=== PATIENT | male | born 1945 | race Caucasian/White ===

== ENCOUNTER 2021-06-11 16:01 | Inpatient (IN) | payer MEDICARE ==
[~2021-06-11] VITALS: Ht 175.3 cm; Wt 113.4 kg
[~2021-06-11 16:01] MED LIST: ADVAIR 250-501 EACH INH; AMLODIPINE BESYL5 MG PO; GEMFIBROZIL600 MG PO; LEVOCETIRIZINE D5 MG PO; MELOXICAM7.5 MG PO; SINGULAIR10 MG PO; ZETIA10 MG PO
[2021-06-11 17:34] LABS: BASOPHILS % 0.4 % (0.0-1.0); EOSINOPHILS # (AUTO) 0.3 (0.0-0.4); EOSINOPHILS % 3.9 % (0.0-6.0); HEMATOCRIT 43.8 % (38.2-49.6); LYMPHOCYTES # (AUTO) 1.3 (1.0-3.2); LYMPHOCYTES % 17.4 % (18.0-39.1); MEAN CORPUSCULAR HEMOGLOBIN 31.6 pg (28-32); MEAN CORPUSCULAR HGB CONC 29.7 g/dL (31-35); MEAN CORPUSCULAR VOLUME 106.3 fL (81-99); MONOCYTES # (AUTO) 0.7 (0.2-0.8); MONOCYTES % 9.5 % (4.4-11.3); NEUTROPHILS # (AUTO) 5.1 (2.1-6.9); NEUTROPHILS % 68.5 % (38.7-80.0); PLATELET COUNT 184 x10e3/uL (140-360); RED BLOOD COUNT 4.12 x10e6/uL (4.3-5.7); RED CELL DISTRIBUTION WIDTH 13.9 % (11.7-14.4)
[2021-06-11 17:56] LABS: ALBUMIN 4.1 g/dL (3.5-5.0); ALBUMIN/GLOBULIN RATIO 1.6 (0.8-2.0); ANION GAP 11.8 mmol/L (8-16); CALCIUM 9.4 mg/dL (8.4-10.2); CREATININE, SERUM 0.87 mg/dL (0.72-1.25); POTASSIUM 4.8 mmol/L (3.5-5.1)
[2021-06-11 18:03] LABS: CREATINE KINASE MB 3.4 ng/mL (0-5.0)
[2021-06-11] MEDS ORDERED: ALBUTEROL/IPRATROPIUM 3 ML NEB NEB STA (18:29)
[2021-06-11] MEDS ORDERED: FUROSEMIDE INJ 10 MG/ML 4 ML VIAL IV NR (18:45)
[2021-06-11 20:00] VITALS: BP_SYST 142; BP_SYST 148; BP_DIAS 68; BP_DIAS 85
[2021-06-11 20:05] VITALS: BP 142/68
[2021-06-11] MEDS ORDERED: MELOXICAM 7.5 MG TAB PO STA (22:09)
[2021-06-11] MEDS ORDERED: SALMETEROL/FLUTICASONE 250/50 INH STA (22:09)
[2021-06-11 23:16] VITALS: BP 142/68
[2021-06-12] VITALS (8 sets, daily range): BP systolic 121–152; BP diastolic 58–76
[2021-06-12 03:06] LABS: CREATINE KINASE MB 2.7 ng/mL (0-5.0)
[2021-06-12 05:41] LABS: BASOPHILS % 0.4 % (0.0-1.0); EOSINOPHILS # (AUTO) 0.4 (0.0-0.4); EOSINOPHILS % 5.3 % (0.0-6.0); HEMATOCRIT 42.9 % (38.2-49.6); HEMOGLOBIN 12.8 g/dL (14.0-18.0); LYMPHOCYTES # (AUTO) 1.4 (1.0-3.2); LYMPHOCYTES % 19.2 % (18.0-39.1); MEAN CORPUSCULAR HEMOGLOBIN 30.8 pg (28-32); MEAN CORPUSCULAR HGB CONC 29.8 g/dL (31-35); MEAN CORPUSCULAR VOLUME 103.4 fL (81-99); MONOCYTES # (AUTO) 0.6 (0.2-0.8); MONOCYTES % 8.9 % (4.4-11.3); NEUTROPHILS # (AUTO) 4.7 (2.1-6.9); NEUTROPHILS % 65.8 % (38.7-80.0); PLATELET COUNT 176 x10e3/uL (140-360); RED BLOOD COUNT 4.15 x10e6/uL (4.3-5.7); RED CELL DISTRIBUTION WIDTH 13.7 % (11.7-14.4)
[2021-06-12 06:04] LABS: CREATINE KINASE MB 2.6 ng/mL (0-5.0)
[2021-06-12 06:17] LABS: ALBUMIN 3.5 g/dL (3.5-5.0); ALBUMIN/GLOBULIN RATIO 1.3 (0.8-2.0); ANION GAP 12.3 mmol/L (8-16); CALCIUM 8.9 mg/dL (8.4-10.2); CREATININE, SERUM 0.82 mg/dL (0.72-1.25); POTASSIUM 4.3 mmol/L (3.5-5.1)
[2021-06-12] MEDS ORDERED: FUROSEMIDE INJ 10 MG/ML 4 ML VIAL IV ONE ×2 (08:00→15:45)
[2021-06-12] MEDS: EZETIMIBE 10 MG TAB PO SCH (08:20)
[2021-06-12] MEDS: AMLODIPINE BESYLATE 5 MG TAB PO SCH (08:21)
[2021-06-12] MEDS: OLMESARTAN 20 MG TAB PO SCH (08:24)
[2021-06-12] MEDS: GEMFIBROZIL 600 MG TAB PO SCH (09:00)
[2021-06-12] MEDS ORDERED: METHYLPREDNISOLONE SOD SUCC 125 MG/2ML VIAL IV ONE (09:00)
[2021-06-12] MEDS: ALBUTEROL/IPRATROPIUM 3 ML NEB NEB SCH ×4 (09:00→20:30)
[2021-06-12] MEDS: SALMETEROL/FLUTICASONE 250/50 INH SCH ×2 (09:36→20:30)
[2021-06-12 11:34] LABS: CREATINE KINASE MB 2.4 ng/mL (0-5.0)
[2021-06-12] MEDS: CEFTRIAXONE 1 GM in SODIUM CHLORIDE 0.9% 50ML 50 ML IV SCH (11:54)
[2021-06-12] MEDS ORDERED: SODIUM CHLORIDE 0.9% 250ML 250 ML ONE (12:13)
[2021-06-12] MEDS ORDERED: MONTELUKAST SODIUM 10 MG TAB PO SCH (21:00)
[2021-06-12] MEDS ORDERED: MELOXICAM 7.5 MG TAB PO SCH (21:00)
[2021-06-13] MEDS: ALBUTEROL/IPRATROPIUM 3 ML NEB NEB SCH ×2 (00:05→08:10)
[2021-06-13 04:00] VITALS: BP 110/68
[2021-06-13 05:58] LABS: HEMATOCRIT 44.8 % (38.2-49.6); LYMPHOCYTES # (AUTO) 0.5 (1.0-3.2); LYMPHOCYTES % 7.5 % (18.0-39.1); MEAN CORPUSCULAR VOLUME 106.7 fL (81-99); MONOCYTES # (AUTO) 0.5 (0.2-0.8); MONOCYTES % 7.1 % (4.4-11.3); NEUTROPHILS # (AUTO) 6.2 (2.1-6.9); NEUTROPHILS % 85.1 % (38.7-80.0); PLATELET COUNT 187 x10e3/uL (140-360); RED CELL DISTRIBUTION WIDTH 13.6 % (11.7-14.4)
[2021-06-13] MEDS ORDERED: FUROSEMIDE INJ 10 MG/ML 4 ML VIAL IV SCH ×2 (06:00→07:00)
[2021-06-13 06:31] LABS: ANION GAP 13.2 mmol/L (8-16); CALCIUM 8.9 mg/dL (8.4-10.2); CREATININE, SERUM 0.81 mg/dL (0.72-1.25); POTASSIUM 4.2 mmol/L (3.5-5.1)
[2021-06-13 07:26] VITALS: BP 115/69
[2021-06-13 08:10] LABS: PLATELET ESTIMATE ADEQUATE; PLATELET MORPHOLOGY COMMENT NORMAL; RBC MORPHOLOGY COMMENT NORMAL
[2021-06-13] MEDS: CEFTRIAXONE 1 GM in SODIUM CHLORIDE 0.9% 50ML 50 ML IV SCH (08:20)
[2021-06-13] MEDS: OLMESARTAN 20 MG TAB PO SCH (08:22)
[2021-06-13] MEDS: GEMFIBROZIL 600 MG TAB PO SCH (08:23)
[2021-06-13 08:24] VITALS: BP 115/69
[2021-06-13] MEDS: AMLODIPINE BESYLATE 5 MG TAB PO SCH (09:00)
[2021-06-13] MEDS: SALMETEROL/FLUTICASONE 250/50 INH SCH (09:00)
[2021-06-13] MEDS: EZETIMIBE 10 MG TAB PO SCH (09:00)
[2021-06-13] MEDS ORDERED: DEXAMETHASONE4 MG PO (10:36)
[2021-06-13] MEDS ORDERED: BENICAR20 MG PO (10:36)
[2021-06-13] MEDS ORDERED: AMLODIPINE BESYL5 MG PO (10:36)
[2021-06-13] MEDS ORDERED: ZITHROMAX500 MG PO (10:36)
[2021-06-13] MEDS ORDERED: FUROSEMIDE40 MG PO (10:37)
== END 2021-06-13 10:55 | disposition home or self-care (01) | DRG 291 ==
LOC: ER 16:57 → ERHOLD 17:18 → MED/SURG 19:46
PROVIDERS: ADMIT Internal Medicine; ATTEND Internal Medicine
DX: I11.0 Hypertensive heart disease with heart failure (principal); I50.33 Acute on chronic diastolic (congestive) heart failure; J44.1 Chronic obstructive pulmonary disease with (acute) exacerbation; J44.0 Chronic obstructive pulmonary disease with (acute) lower respiratory infection; R09.02 Hypoxemia; E66.9 Obesity, unspecified; I25.10 Atherosclerotic heart disease of native coronary artery without angina pectoris; F10.20 Alcohol dependence, uncomplicated; Z68.36 Body mass index [BMI] 36.0-36.9, adult; Z20.822 Contact with and (suspected) exposure to COVID-19
CPT/HCPCS: 36415; 71045; 80048; 80053; 82550; 82553; 82948; 83880; 84484; 85025; 93005; 93306; 94640; 94664; 94799; 99285; J0456; J0696; J1940; J2930; J7050; U0002

== ENCOUNTER → 2022-05-07 | Outpatient (CLI) | payer MEDICARE ==
[~2022-05-07] MED LIST changes: +BENICAR20 MG PO; +DEXAMETHASONE4 MG PO; +FUROSEMIDE40 MG PO; +ZITHROMAX500 MG PO
== END ==
LOC: RAD 14:59
PROVIDERS: ATTEND Internal Medicine
DX: R04.2 Hemoptysis (principal)
CPT/HCPCS: 71046

== ENCOUNTER 2023-06-09 14:55 | Inpatient (IN) | payer MEDICARE ==
[~2023-06-09] VITALS: Ht 172.7 cm; Wt 98.9 kg
[2023-06-09 15:59] LABS: BASOPHILS # (AUTO) 0.1 (0.0-0.1); BASOPHILS % 0.7 % (0.0-1.0); EOSINOPHILS # (AUTO) 0.6 (0.0-0.4); HEMOGLOBIN 9.7 g/dL (14.0-18.0); LYMPHOCYTES # (AUTO) 1.1 (1.0-3.2); LYMPHOCYTES % 13.3 % (18.0-39.1); MEAN CORPUSCULAR HEMOGLOBIN 30.4 pg (28-32); MEAN CORPUSCULAR HGB CONC 29.4 g/dL (31-35); MEAN CORPUSCULAR VOLUME 103.4 fL (81-99); MONOCYTES # (AUTO) 0.8 (0.2-0.8); MONOCYTES % 9.9 % (4.4-11.3); NEUTROPHILS # (AUTO) 5.8 (2.1-6.9); NEUTROPHILS % 68.9 % (38.7-80.0); PLATELET COUNT 212 x10e3/uL (140-360); RED BLOOD COUNT 3.19 x10e6/uL (4.3-5.7); RED CELL DISTRIBUTION WIDTH 14.6 % (11.7-14.4); WHITE BLOOD COUNT 8.45 x10e3/uL (4.8-10.8)
[2023-06-09 16:03] LABS: INR 1.52; PARTIAL THROMBOPLASTIN TIME 32.1 seconds (23.8-35.5); PROTHROMBIN TIME 18.6 seconds (11.9-14.5)
[2023-06-09 16:03] LABS: BILIRUBIN,URINE NEGATIVE (NEGATIVE); CLARITY,URINE CLEAR (CLEAR); COLOR,URINE YELLOW (YELLOW); GLUCOSE, URINE NEGATIVE (NEGATIVE); KETONES,URINE NEGATIVE (NEGATIVE); LEUKOCYTE ESTERASE ,URINE NEGATIVE (NEGATIVE); NITRITE,URINE NEGATIVE (NEGATIVE); PH,URINE 5.5 (5 - 7); PROTEIN,URINE DIPSTICK NEGATIVE (NEGATIVE); URINE UROBILINOGEN 0.2 mg/dL (0.2 - 1)
[2023-06-09 16:15] LABS: ALBUMIN 3.9 g/dL (3.5-5.0); ALBUMIN/GLOBULIN RATIO 1.5 (0.8-2.0); ANION GAP 16.3 mmol/L (8-16); BILIRUBIN,TOTAL 0.6 mg/dL (0.2-1.2); CALCIUM 8.7 mg/dL (8.4-10.2); CREATININE, SERUM 2.62 mg/dL (0.72-1.25); MAGNESIUM 2.4 MG/DL (1.3-2.1); POTASSIUM 4.3 mmol/L (3.5-5.1); TOTAL PROTEIN 6.5 g/dL (6.5-8.1)
[2023-06-09 16:21] LABS: TROPONIN I 0.034 ng/mL (0-0.300)
[2023-06-09 16:28] LABS: BACTERIA,URINE RARE /HPF; WBC,URINE (MAN) 0-5 /HPF (0-5)
[2023-06-09] MEDS ORDERED: ALBUTEROL/IPRATROPIUM 3 ML NEB NEB ONE (17:30)
[2023-06-09 17:33] VITALS: PULSE 85; RESP 22; O2SAT 98
[2023-06-09] MEDS ORDERED: FUROSEMIDE INJ 10 MG/ML 4 ML VIAL IV ONE ×2 (18:15→22:45)
[2023-06-09] MEDS ORDERED: FAMOTIDINE 20 MG/2 ML VIAL IV SCH (19:30)
[2023-06-09] MEDS ORDERED: ONDANSETRON HCL INJ 2MG/ML 2ML 2 MG/ML VIAL IV PRN (19:30)
[2023-06-09 21:51] VITALS: BP 102/84; PULSE 81; RESP 20; TEMP 97.1; O2SAT 91
[2023-06-09 22:00] VITALS: BP 102/84; PULSE 81; RESP 20; TEMP 97.1; O2SAT 91
[2023-06-09] MEDS ORDERED: METHYLPREDNISOLONE SOD SUCC 125 MG/2ML VIAL IV ONE (22:45)
[2023-06-09 23:30] VITALS: O2SAT 98
[2023-06-09] MEDS: ALBUTEROL/IPRATROPIUM 3 ML NEB NEB SCH (23:35)
[2023-06-10] VITALS (12 sets, daily range): BP systolic 92–143; BP diastolic 51–82; PULSE 72–103; RESP 18–22; TEMP 97.1–98.3; O2SAT 93–100
[2023-06-10 00:48] LABS: TROPONIN I 0.03 ng/mL (0-0.300)
[2023-06-10] MEDS ORDERED: ELIQUIS5 MG PO (02:15)
[2023-06-10] MEDS: ALBUTEROL/IPRATROPIUM 3 ML NEB NEB SCH ×6 (03:55→23:10)
[2023-06-10 05:34] LABS: BASOPHILS % 0.5 % (0.0-1.0); EOSINOPHILS # (AUTO) 0.1 (0.0-0.4); EOSINOPHILS % 0.7 % (0.0-6.0); HEMATOCRIT 35.9 % (38.2-49.6); HEMOGLOBIN 10.7 g/dL (14.0-18.0); LYMPHOCYTES # (AUTO) 0.5 (1.0-3.2); MEAN CORPUSCULAR HGB CONC 29.8 g/dL (31-35); MEAN CORPUSCULAR VOLUME 100.6 fL (81-99); MONOCYTES # (AUTO) 0.1 (0.2-0.8); MONOCYTES % 0.8 % (4.4-11.3); NEUTROPHILS # (AUTO) 7.6 (2.1-6.9); NEUTROPHILS % 91.5 % (38.7-80.0); PLATELET COUNT 221 x10e3/uL (140-360); RED BLOOD COUNT 3.57 x10e6/uL (4.3-5.7); RED CELL DISTRIBUTION WIDTH 14.4 % (11.7-14.4); WHITE BLOOD COUNT 8.29 x10e3/uL (4.8-10.8)
[2023-06-10 06:04] LABS: ALBUMIN 4.1 g/dL (3.5-5.0); ALBUMIN/GLOBULIN RATIO 1.5 (0.8-2.0); ANION GAP 19.8 mmol/L (8-16); BILIRUBIN,TOTAL 0.7 mg/dL (0.2-1.2); CALCIUM 8.8 mg/dL (8.4-10.2); CREATININE, SERUM 2.47 mg/dL (0.72-1.25); POTASSIUM 4.8 mmol/L (3.5-5.1); TOTAL PROTEIN 6.9 g/dL (6.5-8.1)
[2023-06-10 06:37] LABS: TROPONIN I 0.035 ng/mL (0-0.300)
[2023-06-10] MEDS ORDERED: POLYETHYLENE GLYCOL 3350 17 GM PACK PO PRN (07:15)
[2023-06-10] MEDS ORDERED: METOPROLOL TARTRATE INJ 1 MG/ML VIAL IV PRN (07:15)
[2023-06-10] MEDS ORDERED: DIPHENHYDRAMINE HCL 30 GM TUBE TOP PRN (07:30)
[2023-06-10] MEDS: SALMETEROL XINAF/FLUTICASONE 250/50 MCG INHALER INH SCH ×2 (08:34→19:10)
[2023-06-10] MEDS ORDERED: FUROSEMIDE INJ 10 MG/ML 2 ML VIAL IV SCH (09:00)
[2023-06-10] MEDS ORDERED: PIPERONYL BUTOXIDE/PYRETHRINS 118 ML SHAMPOO TP ONE (09:00)
[2023-06-10] MEDS ORDERED: OLMESARTAN 20 MG TAB PO SCH (09:00)
[2023-06-10] MEDS ORDERED: NON-FORMULARY MEDICATION (Levocetirizine Dihydrochloride 5 MG) PO SCH (09:00)
[2023-06-10] MEDS: EZETIMIBE 10 MG TAB PO SCH (09:58)
[2023-06-10] MEDS: POTASSIUM CHLORIDE 20 MEQ TAB CR PO SCH (09:59)
[2023-06-10] MEDS: DOCUSATE SODIUM 100 MG CAP PO SCH ×2 (09:59→16:51)
[2023-06-10] MEDS: APIXABAN 5 MG TABLET PO SCH ×2 (09:59→16:51)
[2023-06-10] MEDS: AMLODIPINE BESYLATE 5 MG TAB PO SCH (09:59)
[2023-06-10] MEDS: LORATADINE 10 MG TAB PO SCH (10:00)
[2023-06-10] MEDS: GEMFIBROZIL 600 MG TAB PO SCH (10:00)
[2023-06-10] MEDS: MUPIROCIN 2% OINT 22 GM TUBE TOP SCH (11:24)
[2023-06-10 13:30] LABS: TROPONIN I 0.033 ng/mL (0-0.300)
[2023-06-10 13:41] LABS: PHOSPHORUS 5.1 MG/DL (2.3-4.7)
[2023-06-10 14:03] LABS: FREE T4 (FREE THYROXINE) 1.08 ng/dL (0.8-1.8); THYROID STIMULATING HORMONE 0.667 uIU/mL (0.350-4.940)
[2023-06-10] MEDS: FUROSEMIDE INJ 10 MG/ML 4 ML VIAL IV SCH (16:51)
[2023-06-11] VITALS (10 sets, daily range): BP systolic 113–136; BP diastolic 50–87; PULSE 84–109; RESP 16–23; TEMP 98–98.4; O2SAT 90–98
[2023-06-11] MEDS: ALBUTEROL/IPRATROPIUM 3 ML NEB NEB SCH ×6 (03:13→23:17)
[2023-06-11 05:48] LABS: BASOPHILS % 0.2 % (0.0-1.0); HEMATOCRIT 32.1 % (38.2-49.6); HEMOGLOBIN 9.3 g/dL (14.0-18.0); LYMPHOCYTES # (AUTO) 0.5 (1.0-3.2); LYMPHOCYTES % 5.1 % (18.0-39.1); MEAN CORPUSCULAR HEMOGLOBIN 30.1 pg (28-32); MEAN CORPUSCULAR VOLUME 103.9 fL (81-99); MONOCYTES # (AUTO) 1.1 (0.2-0.8); MONOCYTES % 11.4 % (4.4-11.3); NEUTROPHILS # (AUTO) 8.1 (2.1-6.9); PLATELET COUNT 199 x10e3/uL (140-360); RED BLOOD COUNT 3.09 x10e6/uL (4.3-5.7); RED CELL DISTRIBUTION WIDTH 14.3 % (11.7-14.4)
[2023-06-11 07:23] LABS: ANION GAP 17.2 mmol/L (8-16); CALCIUM 8.6 mg/dL (8.4-10.2); CREATININE, SERUM 3.47 mg/dL (0.72-1.25); MAGNESIUM 2.6 MG/DL (1.3-2.1)
[2023-06-11 07:25] LABS: POTASSIUM 5.2 mmol/L (3.5-5.1)
[2023-06-11] MEDS: SALMETEROL XINAF/FLUTICASONE 250/50 MCG INHALER INH SCH ×2 (07:49→20:23)
[2023-06-11] MEDS: OLMESARTAN 20 MG TAB PO SCH (08:13)
[2023-06-11] MEDS: APIXABAN 5 MG TABLET PO SCH ×2 (08:13→16:23)
[2023-06-11] MEDS: EZETIMIBE 10 MG TAB PO SCH (08:13)
[2023-06-11] MEDS: POTASSIUM CHLORIDE 20 MEQ TAB CR PO SCH ×3 (08:13→09:00)
[2023-06-11] MEDS: FUROSEMIDE INJ 10 MG/ML 4 ML VIAL IV SCH (08:14)
[2023-06-11] MEDS: GEMFIBROZIL 600 MG TAB PO SCH (08:14)
[2023-06-11] MEDS: AMLODIPINE BESYLATE 5 MG TAB PO SCH (08:14)
[2023-06-11] MEDS: LORATADINE 10 MG TAB PO SCH (08:14)
[2023-06-11] MEDS: DOCUSATE SODIUM 100 MG CAP PO SCH ×2 (08:14→16:23)
[2023-06-11] MEDS: MUPIROCIN 2% OINT 22 GM TUBE TOP SCH (08:15)
[2023-06-11] MEDS ORDERED: ONDANSETRON HCL 4 MG ORAL DISINTEGRATING TAB PO PRN (13:30)
[2023-06-12] VITALS (12 sets, daily range): BP systolic 112–151; BP diastolic 60–85; PULSE 89–122; RESP 18–23; TEMP 98.3–99; O2SAT 94–98
[2023-06-12] MEDS: ALBUTEROL/IPRATROPIUM 3 ML NEB NEB SCH ×6 (03:34→23:08)
[2023-06-12 06:06] LABS: BASOPHILS % 0.2 % (0.0-1.0); EOSINOPHILS # (AUTO) 0.1 (0.0-0.4); EOSINOPHILS % 0.8 % (0.0-6.0); HEMOGLOBIN 9.7 g/dL (14.0-18.0); LYMPHOCYTES % 9.3 % (18.0-39.1); MEAN CORPUSCULAR HEMOGLOBIN 30.3 pg (28-32); MEAN CORPUSCULAR HGB CONC 29.4 g/dL (31-35); MEAN CORPUSCULAR VOLUME 103.1 fL (81-99); MONOCYTES # (AUTO) 1.3 (0.2-0.8); MONOCYTES % 11.4 % (4.4-11.3); NEUTROPHILS # (AUTO) 8.6 (2.1-6.9); PLATELET COUNT 199 x10e3/uL (140-360); RED CELL DISTRIBUTION WIDTH 14.2 % (11.7-14.4); WHITE BLOOD COUNT 10.98 x10e3/uL (4.8-10.8)
[2023-06-12 06:30] LABS: ALBUMIN 3.9 g/dL (3.5-5.0); ALBUMIN/GLOBULIN RATIO 1.1 (0.8-2.0); ANION GAP 18.4 mmol/L (8-16); BILIRUBIN,TOTAL 0.6 mg/dL (0.2-1.2); CALCIUM 8.6 mg/dL (8.4-10.2); TOTAL PROTEIN 7.3 g/dL (6.5-8.1)
[2023-06-12 06:36] LABS: POTASSIUM 5.4 mmol/L (3.5-5.1)
[2023-06-12] MEDS: SALMETEROL XINAF/FLUTICASONE 250/50 MCG INHALER INH SCH ×2 (06:38→19:16)
[2023-06-12 06:53] LABS: FERRITIN 66.65 ng/mL (21.81-274.66)
[2023-06-12 07:06] LABS: FOLATE 8.6 ng/mL (7.0-15.4)
[2023-06-12] MEDS ORDERED: FUROSEMIDE INJ 10 MG/ML 4 ML VIAL IV SCH (09:00)
[2023-06-12] MEDS: LORATADINE 10 MG TAB PO SCH (09:21)
[2023-06-12] MEDS: GEMFIBROZIL 600 MG TAB PO SCH (09:21)
[2023-06-12] MEDS: MUPIROCIN 2% OINT 22 GM TUBE TOP SCH (09:21)
[2023-06-12] MEDS: APIXABAN 5 MG TABLET PO SCH ×2 (09:21→20:31)
[2023-06-12] MEDS: AMLODIPINE BESYLATE 5 MG TAB PO SCH (09:21)
[2023-06-12] MEDS: DOCUSATE SODIUM 100 MG CAP PO SCH ×2 (09:21→20:31)
[2023-06-12] MEDS: OLMESARTAN 20 MG TAB PO SCH (09:21)
[2023-06-12] MEDS: EZETIMIBE 10 MG TAB PO SCH (09:21)
[2023-06-12] MEDS ORDERED: SOD POLYSTYRENE SULFONATE SUSP 15 GM/60 ML BTL PO ONE ×2 (15:45→19:15)
[2023-06-12] MEDS: ACETAMINOPHEN 325 MG TAB PO PRN (21:05)
[2023-06-13] VITALS (15 sets, daily range): BP systolic 117–152; BP diastolic 66–82; PULSE 99–127; RESP 19–24; TEMP 98.2–99.2; O2SAT 90–98
[2023-06-13] MEDS: ALBUTEROL/IPRATROPIUM 3 ML NEB NEB SCH ×6 (03:12→23:17)
[2023-06-13 06:31] LABS: ANION GAP 15.7 mmol/L (8-16); CALCIUM 8.5 mg/dL (8.4-10.2); CREATININE, SERUM 1.94 mg/dL (0.72-1.25); POTASSIUM 4.7 mmol/L (3.5-5.1)
[2023-06-13] MEDS: SALMETEROL XINAF/FLUTICASONE 250/50 MCG INHALER INH SCH ×2 (07:00→18:58)
[2023-06-13] MEDS: APIXABAN 5 MG TABLET PO SCH ×2 (09:42→17:06)
[2023-06-13] MEDS: GEMFIBROZIL 600 MG TAB PO SCH (09:42)
[2023-06-13] MEDS: DOCUSATE SODIUM 100 MG CAP PO SCH ×2 (09:42→17:06)
[2023-06-13] MEDS: OLMESARTAN 20 MG TAB PO SCH (09:45)
[2023-06-13] MEDS: EZETIMIBE 10 MG TAB PO SCH (09:45)
[2023-06-13] MEDS: AMLODIPINE BESYLATE 5 MG TAB PO SCH (09:45)
[2023-06-13] MEDS: LORATADINE 10 MG TAB PO SCH (09:45)
[2023-06-13] MEDS: MUPIROCIN 2% OINT 22 GM TUBE TOP SCH (09:45)
[2023-06-13] MEDS: ACETAMINOPHEN 325 MG TAB PO PRN (09:55)
[2023-06-14] VITALS (35 sets, daily range): BP systolic 92–171; BP diastolic 50–108; PULSE 72–122; RESP 9–27; TEMP 98–99; O2SAT 90–100
[2023-06-14] MEDS ORDERED: LORAZEPAM 1 MG TAB PO PRN (03:15)
[2023-06-14] MEDS: ALBUTEROL/IPRATROPIUM 3 ML NEB NEB SCH ×6 (03:17→23:17)
[2023-06-14] MEDS: SALMETEROL XINAF/FLUTICASONE 250/50 MCG INHALER INH SCH ×2 (07:00→19:00)
[2023-06-14 08:44] LABS: CALCIUM 8.6 mg/dL (8.4-10.2); CREATININE, SERUM 1.59 mg/dL (0.72-1.25)
[2023-06-14] MEDS: AMLODIPINE BESYLATE 5 MG TAB PO SCH (09:00)
[2023-06-14] MEDS: APIXABAN 5 MG TABLET PO SCH ×2 (09:00→16:11)
[2023-06-14] MEDS: FERROUS SULFATE 325 MG TAB PO SCH (09:00)
[2023-06-14] MEDS: LORATADINE 10 MG TAB PO SCH (09:00)
[2023-06-14] MEDS: DOCUSATE SODIUM 100 MG CAP PO SCH ×2 (09:00→16:10)
[2023-06-14] MEDS: EZETIMIBE 10 MG TAB PO SCH (09:00)
[2023-06-14] MEDS: GEMFIBROZIL 600 MG TAB PO SCH (09:00)
[2023-06-14 09:03] LABS: ANION GAP 17.5 mmol/L (8-16); POTASSIUM 5.5 mmol/L (3.5-5.1)
[2023-06-14 09:33] LABS: ALBUMIN 3.7 g/dL (3.5-5.0); BILIRUBIN,DIRECT 0.3 mg/dL (0.0-0.5); BILIRUBIN,TOTAL 0.7 mg/dL (0.2-1.2); TOTAL PROTEIN 7.2 g/dL (6.5-8.1)
[2023-06-14] MEDS: MUPIROCIN 2% OINT 22 GM TUBE TOP SCH (09:57)
[2023-06-14] MEDS ORDERED: METHYLPREDNISOLONE SOD SUCC 125 MG/2ML VIAL IV ONE (10:10)
[2023-06-14 10:21] LABS: BASOPHILS % 0.3 % (0.0-1.0); EOSINOPHILS % 0.1 % (0.0-6.0); HEMATOCRIT 30.6 % (38.2-49.6); HEMOGLOBIN 8.6 g/dL (14.0-18.0); LYMPHOCYTES # (AUTO) 0.3 (1.0-3.2); LYMPHOCYTES % 4.3 % (18.0-39.1); MEAN CORPUSCULAR HEMOGLOBIN 29.2 pg (28-32); MEAN CORPUSCULAR HGB CONC 28.1 g/dL (31-35); MEAN CORPUSCULAR VOLUME 103.7 fL (81-99); MONOCYTES # (AUTO) 0.8 (0.2-0.8); MONOCYTES % 12.3 % (4.4-11.3); NEUTROPHILS # (AUTO) 5.6 (2.1-6.9); NEUTROPHILS % 82.3 % (38.7-80.0); PLATELET COUNT 143 x10e3/uL (140-360); RED BLOOD COUNT 2.95 x10e6/uL (4.3-5.7); WHITE BLOOD COUNT 6.82 x10e3/uL (4.8-10.8)
[2023-06-14] MEDS: PROPOFOL IV EMULSION 10MG/ML 100 ML IV PRN ×3 (10:44→22:01)
[2023-06-14 11:10] LABS: ABG PH 7.25 (7.35-7.45)
[2023-06-14 11:11] LABS: ABG HCO3 37 mmol/L (22-26); ABG PCO2 86 mmHg (35-45); ABG PO2 54 mmHg (80-105); ABG TCO2 40
[2023-06-14] MEDS ORDERED: VECURONIUM BROMIDE FOR INJ 20 MG VIAL ONE (12:04)
[2023-06-14] MEDS ORDERED: WATER STERILE 10 ML VIAL ONE (12:04)
[2023-06-14] MEDS ORDERED: ETOMIDATE 2 MG/ML 10 ML INJ IV ONE (12:04)
[2023-06-14] MEDS ORDERED: MIDAZOLAM HCL 2 MG/2 ML VIAL ONE (12:04)
[2023-06-14 12:37] LABS: ABG HCO3 36 mmol/L (22-26); ABG PCO2 59 mmHg (35-45); ABG PH 7.39 (7.35-7.45); ABG PO2 64 mmHg (80-105); ABG TCO2 38
[2023-06-15] VITALS (56 sets, daily range): BP systolic 83–160; BP diastolic 35–130; PULSE 63–99; RESP 15–25; TEMP 97.8–98.8; O2SAT 95–99
[2023-06-15] MEDS: ALBUTEROL/IPRATROPIUM 3 ML NEB NEB SCH ×6 (03:10→22:41)
[2023-06-15] MEDS: PROPOFOL IV EMULSION 10MG/ML 100 ML IV PRN ×6 (03:12→22:51)
[2023-06-15 06:53] LABS: HEMATOCRIT 27.6 % (38.2-49.6); HEMOGLOBIN 8.4 g/dL (14.0-18.0); LYMPHOCYTES # (AUTO) 0.2 (1.0-3.2); LYMPHOCYTES % 4.3 % (18.0-39.1); MEAN CORPUSCULAR HEMOGLOBIN 29.9 pg (28-32); MEAN CORPUSCULAR HGB CONC 30.4 g/dL (31-35); MEAN CORPUSCULAR VOLUME 98.2 fL (81-99); MONOCYTES # (AUTO) 0.6 (0.2-0.8); MONOCYTES % 11.7 % (4.4-11.3); NEUTROPHILS # (AUTO) 4.4 (2.1-6.9); NEUTROPHILS % 83.6 % (38.7-80.0); PLATELET COUNT 129 x10e3/uL (140-360); RED BLOOD COUNT 2.81 x10e6/uL (4.3-5.7)
[2023-06-15] MEDS: SALMETEROL XINAF/FLUTICASONE 250/50 MCG INHALER INH SCH ×2 (07:00→19:00)
[2023-06-15 07:12] LABS: ANION GAP 14.3 mmol/L (8-16); CALCIUM 8.2 mg/dL (8.4-10.2); CREATININE, SERUM 1.3 mg/dL (0.72-1.25); POTASSIUM 4.3 mmol/L (3.5-5.1)
[2023-06-15] MEDS ORDERED: FUROSEMIDE INJ 10 MG/ML 4 ML VIAL IV ONE (08:00)
[2023-06-15] MEDS ORDERED: METHYLPREDNISOLONE SOD SUCC 125 MG/2ML VIAL IV ONE (08:00)
[2023-06-15] MEDS: DOCUSATE SODIUM 100 MG CAP PO SCH ×3 (09:00→16:33)
[2023-06-15] MEDS: AMLODIPINE BESYLATE 5 MG TAB PO SCH (09:17)
[2023-06-15] MEDS: FERROUS SULFATE 325 MG TAB PO SCH (09:17)
[2023-06-15] MEDS: GEMFIBROZIL 600 MG TAB PO SCH (09:17)
[2023-06-15] MEDS: EZETIMIBE 10 MG TAB PO SCH (09:18)
[2023-06-15] MEDS: MUPIROCIN 2% OINT 22 GM TUBE TOP SCH (09:18)
[2023-06-15] MEDS: APIXABAN 5 MG TABLET PO SCH ×2 (09:18→16:46)
[2023-06-15] MEDS ORDERED: SODIUM CHLORIDE 0.9% 1000ML 1,000 ML ONE (09:28)
[2023-06-15 12:50] LABS: ABG HCO3 36 mmol/L (22-26); ABG PCO2 47 mmHg (35-45); ABG PH 7.49 (7.35-7.45); ABG PO2 84 mmHg (80-105)
[2023-06-15 12:51] LABS: ABG TCO2 37
[2023-06-15] MEDS ORDERED: ALBUMIN 5% 0.05 GM/ML BTL IV ONE ×2 (16:30→17:15)
[2023-06-15] MEDS ORDERED: ALBUMIN 5% 250ML 250 ML IV ONE ×2 (16:45→17:30)
[2023-06-15] MEDS ORDERED: MIDAZOLAM HCL 2 MG/2 ML VIAL IV PRN (17:30)
[2023-06-15] MEDS ORDERED: FENTANYL 2000MCG/NS 250 250 ML IV PRN (17:30)
[2023-06-15 17:50] LABS: ABG HCO3 37 mmol/L (22-26); ABG PCO2 49 mmHg (35-45); ABG PH 7.49 (7.35-7.45); ABG PO2 90 mmHg (80-105); ABG TCO2 38
[2023-06-15 18:05] LABS: BASOPHILS % 0.2 % (0.0-1.0); HEMATOCRIT 26.9 % (38.2-49.6); HEMOGLOBIN 8.2 g/dL (14.0-18.0); LYMPHOCYTES # (AUTO) 0.3 (1.0-3.2); LYMPHOCYTES % 4.9 % (18.0-39.1); MEAN CORPUSCULAR HEMOGLOBIN 29.9 pg (28-32); MEAN CORPUSCULAR HGB CONC 30.5 g/dL (31-35); MEAN CORPUSCULAR VOLUME 98.2 fL (81-99); MONOCYTES # (AUTO) 0.3 (0.2-0.8); MONOCYTES % 6.3 % (4.4-11.3); NEUTROPHILS # (AUTO) 4.5 (2.1-6.9); NEUTROPHILS % 88.2 % (38.7-80.0); PLATELET COUNT 135 x10e3/uL (140-360); RED BLOOD COUNT 2.74 x10e6/uL (4.3-5.7); RED CELL DISTRIBUTION WIDTH 14.2 % (11.7-14.4); WHITE BLOOD COUNT 5.07 x10e3/uL (4.8-10.8)
[2023-06-15] MEDS: VASOPRESSIN 60 UNIT in DEXTROSE 5% 50ML 50 ML IV SCH (21:55)
[2023-06-16] VITALS (60 sets, daily range): BP systolic 97–141; BP diastolic 41–62; PULSE 62–113; RESP 16–32; TEMP 97.5–98.2; O2SAT 90–99
[2023-06-16] MEDS: ALBUTEROL/IPRATROPIUM 3 ML NEB NEB SCH ×6 (03:52→22:56)
[2023-06-16] MEDS: PROPOFOL IV EMULSION 10MG/ML 100 ML IV PRN (04:01)
[2023-06-16] MEDS: SALMETEROL XINAF/FLUTICASONE 250/50 MCG INHALER INH SCH ×2 (05:25→19:00)
[2023-06-16 06:42] LABS: HEMOGLOBIN 8.6 g/dL (14.0-18.0); LYMPHOCYTES # (AUTO) 0.4 (1.0-3.2); LYMPHOCYTES % 6.7 % (18.0-39.1); MEAN CORPUSCULAR HGB CONC 30.7 g/dL (31-35); MEAN CORPUSCULAR VOLUME 97.6 fL (81-99); MONOCYTES # (AUTO) 0.7 (0.2-0.8); MONOCYTES % 11.3 % (4.4-11.3); NEUTROPHILS # (AUTO) 4.8 (2.1-6.9); NEUTROPHILS % 81.7 % (38.7-80.0); PLATELET COUNT 133 x10e3/uL (140-360); RED BLOOD COUNT 2.87 x10e6/uL (4.3-5.7); RED CELL DISTRIBUTION WIDTH 14.2 % (11.7-14.4); WHITE BLOOD COUNT 5.84 x10e3/uL (4.8-10.8)
[2023-06-16] MEDS ORDERED: FUROSEMIDE INJ 10 MG/ML 4 ML VIAL IV STA (07:17)
[2023-06-16] MEDS ORDERED: METHYLPREDNISOLONE SOD SUCC 40 MG/ML VIAL 1ML IV STA (07:17)
[2023-06-16 07:34] LABS: ALBUMIN 2.9 g/dL (3.5-5.0); ALBUMIN/GLOBULIN RATIO 1.1 (0.8-2.0); ANION GAP 14.9 mmol/L (8-16); BILIRUBIN,TOTAL 0.6 mg/dL (0.2-1.2); CALCIUM 7.9 mg/dL (8.4-10.2); CREATININE, SERUM 1.32 mg/dL (0.72-1.25); POTASSIUM 3.9 mmol/L (3.5-5.1); TOTAL PROTEIN 5.5 g/dL (6.5-8.1)
[2023-06-16 08:04] LABS: ABG HCO3 37 mmol/L (22-26); ABG PCO2 59 mmHg (35-45); ABG PH 7.41 (7.35-7.45); ABG PO2 81 mmHg (80-105); ABG TCO2 39
[2023-06-16] MEDS: DOCUSATE SODIUM 100 MG CAP PO SCH ×2 (08:54→17:00)
[2023-06-16] MEDS: APIXABAN 5 MG TABLET PO SCH ×2 (08:54→17:19)
[2023-06-16] MEDS: GEMFIBROZIL 600 MG TAB PO SCH (08:54)
[2023-06-16] MEDS: FERROUS SULFATE 325 MG TAB PO SCH (08:54)
[2023-06-16] MEDS: EZETIMIBE 10 MG TAB PO SCH (08:54)
[2023-06-16] MEDS: MUPIROCIN 2% OINT 22 GM TUBE TOP SCH (08:55)
[2023-06-16] MEDS: AMLODIPINE BESYLATE 5 MG TAB PO SCH (08:55)
[2023-06-16 09:42] LABS: ABG HCO3 40 mmol/L (22-26); ABG PCO2 69 mmHg (35-45); ABG PH 7.37 (7.35-7.45); ABG PO2 159 mmHg (80-105); ABG TCO2 42
[2023-06-16] MEDS: DOCUSATE SODIUM LIQD 100 MG/10 ML UDC NG SCH (17:19)
[2023-06-16] MEDS: VASOPRESSIN 60 UNIT in DEXTROSE 5% 50ML 50 ML IV SCH (21:15)
[2023-06-17] VITALS (41 sets, daily range): BP systolic 107–136; BP diastolic 46–65; PULSE 100–112; RESP 16–34; TEMP 97.7–98; O2SAT 89–100
[2023-06-17] MEDS: ALBUTEROL/IPRATROPIUM 3 ML NEB NEB SCH ×6 (03:05→23:52)
[2023-06-17 06:32] LABS: BASOPHILS % 0.1 % (0.0-1.0); HEMATOCRIT 32.2 % (38.2-49.6); HEMOGLOBIN 9.4 g/dL (14.0-18.0); LYMPHOCYTES # (AUTO) 0.7 (1.0-3.2); LYMPHOCYTES % 6.4 % (18.0-39.1); MEAN CORPUSCULAR HEMOGLOBIN 29.4 pg (28-32); MEAN CORPUSCULAR HGB CONC 29.2 g/dL (31-35); MEAN CORPUSCULAR VOLUME 100.6 fL (81-99); MONOCYTES # (AUTO) 1.4 (0.2-0.8); MONOCYTES % 12.8 % (4.4-11.3); NEUTROPHILS % 80.3 % (38.7-80.0); PLATELET COUNT 163 x10e3/uL (140-360); RED CELL DISTRIBUTION WIDTH 14.3 % (11.7-14.4); WHITE BLOOD COUNT 11.18 x10e3/uL (4.8-10.8)
[2023-06-17 07:13] LABS: ALBUMIN 2.9 g/dL (3.5-5.0); ANION GAP 12.5 mmol/L (8-16); BILIRUBIN,TOTAL 0.5 mg/dL (0.2-1.2); CREATININE, SERUM 1.36 mg/dL (0.72-1.25); POTASSIUM 4.5 mmol/L (3.5-5.1); TOTAL PROTEIN 5.9 g/dL (6.5-8.1)
[2023-06-17] MEDS: SALMETEROL XINAF/FLUTICASONE 250/50 MCG INHALER INH SCH ×2 (07:49→18:59)
[2023-06-17] MEDS: EZETIMIBE 10 MG TAB PO SCH (08:27)
[2023-06-17] MEDS: DOCUSATE SODIUM LIQD 100 MG/10 ML UDC NG SCH ×2 (08:27→16:36)
[2023-06-17] MEDS: APIXABAN 5 MG TABLET PO SCH ×2 (08:28→16:36)
[2023-06-17] MEDS: MUPIROCIN 2% OINT 22 GM TUBE TOP SCH (08:28)
[2023-06-17] MEDS: FERROUS SULFATE 325 MG TAB PO SCH (08:28)
[2023-06-17] MEDS: GEMFIBROZIL 600 MG TAB PO SCH (08:28)
[2023-06-18] VITALS (33 sets, daily range): BP systolic 93–134; BP diastolic 43–72; PULSE 90–127; RESP 16–30; TEMP 97.6–98.3; O2SAT 90–100
[2023-06-18] MEDS: ALBUTEROL/IPRATROPIUM 3 ML NEB NEB SCH ×5 (03:49→19:32)
[2023-06-18 06:45] LABS: ANION GAP 12.9 mmol/L (8-16); CALCIUM 9.2 mg/dL (8.4-10.2); CREATININE, SERUM 1.16 mg/dL (0.72-1.25); POTASSIUM 4.9 mmol/L (3.5-5.1)
[2023-06-18] MEDS: SALMETEROL XINAF/FLUTICASONE 250/50 MCG INHALER INH SCH ×2 (07:17→19:29)
[2023-06-18] MEDS: GEMFIBROZIL 600 MG TAB PO SCH (08:07)
[2023-06-18] MEDS: APIXABAN 5 MG TABLET PO SCH ×2 (08:07→16:23)
[2023-06-18] MEDS: EZETIMIBE 10 MG TAB PO SCH (08:07)
[2023-06-18] MEDS: DOCUSATE SODIUM LIQD 100 MG/10 ML UDC NG SCH ×2 (08:07→16:23)
[2023-06-18] MEDS: FERROUS SULFATE 325 MG TAB PO SCH (08:07)
[2023-06-18] MEDS ORDERED: METHYLPREDNISOLONE SOD SUCC 40 MG/ML VIAL 1ML IV ONE (08:45)
[2023-06-18] MEDS ORDERED: ACETAZOLAMIDE SODIUM 500 MG/VIAL IV SCH (12:30)
[2023-06-18] MEDS: METOPROLOL TARTRATE 25 MG TAB PO SCH (16:24)
[2023-06-18] MEDS: CHLOROTHIAZIDE SODIUM 500 MG VIAL IV SCH (16:58)
[2023-06-18 22:52] LABS: ABG HCO3 42 mmol/L (22-26); ABG PCO2 107 mmHg (35-45); ABG PO2 232 mmHg (80-105); ABG TCO2 45
[2023-06-18] MEDS ORDERED: METHYLPREDNISOLONE SOD SUCC 125 MG/2ML VIAL IV SCH (23:15)
[2023-06-19] VITALS (32 sets, daily range): BP systolic 77–137; BP diastolic 48–119; PULSE 42–110; RESP 18–29; TEMP 97.9–98.3; O2SAT 90–100
[2023-06-19] MEDS: ALBUTEROL/IPRATROPIUM 3 ML NEB NEB SCH ×7 (00:04→23:20)
[2023-06-19 02:57] LABS: ABG PH 7.34 (7.35-7.45)
[2023-06-19 02:59] LABS: ABG HCO3 38 mmol/L (22-26); ABG PCO2 70 mmHg (35-45); ABG PO2 153 mmHg (80-105); ABG TCO2 40
[2023-06-19 06:56] LABS: BASOPHILS % 0.1 % (0.0-1.0); HEMATOCRIT 34.1 % (38.2-49.6); HEMOGLOBIN 9.6 g/dL (14.0-18.0); LYMPHOCYTES # (AUTO) 0.6 (1.0-3.2); LYMPHOCYTES % 4.8 % (18.0-39.1); MEAN CORPUSCULAR HEMOGLOBIN 29.5 pg (28-32); MEAN CORPUSCULAR HGB CONC 28.2 g/dL (31-35); MEAN CORPUSCULAR VOLUME 104.9 fL (81-99); MONOCYTES # (AUTO) 0.2 (0.2-0.8); MONOCYTES % 1.8 % (4.4-11.3); NEUTROPHILS # (AUTO) 10.9 (2.1-6.9); NEUTROPHILS % 92.7 % (38.7-80.0); PLATELET COUNT 151 x10e3/uL (140-360); RED BLOOD COUNT 3.25 x10e6/uL (4.3-5.7); RED CELL DISTRIBUTION WIDTH 13.6 % (11.7-14.4)
[2023-06-19 07:19] LABS: ALBUMIN/GLOBULIN RATIO 0.8 (0.8-2.0); ANION GAP 10.9 mmol/L (8-16); BILIRUBIN,TOTAL 0.5 mg/dL (0.2-1.2); CALCIUM 9.6 mg/dL (8.4-10.2); CREATININE, SERUM 1.36 mg/dL (0.72-1.25); POTASSIUM 4.9 mmol/L (3.5-5.1); TOTAL PROTEIN 6.6 g/dL (6.5-8.1)
[2023-06-19] MEDS: APIXABAN 5 MG TABLET PO SCH ×2 (08:00→17:00)
[2023-06-19] MEDS: DOCUSATE SODIUM LIQD 100 MG/10 ML UDC NG SCH ×2 (08:00→17:00)
[2023-06-19] MEDS: GEMFIBROZIL 600 MG TAB PO SCH (08:00)
[2023-06-19] MEDS: FERROUS SULFATE 325 MG TAB PO SCH (08:00)
[2023-06-19] MEDS: METOPROLOL TARTRATE 25 MG TAB PO SCH ×2 (08:01→20:43)
[2023-06-19] MEDS: EZETIMIBE 10 MG TAB PO SCH (08:01)
[2023-06-19] MEDS: SALMETEROL XINAF/FLUTICASONE 250/50 MCG INHALER INH SCH ×2 (08:10→19:42)
[2023-06-19 08:52] LABS: ABG PH 7.31 (7.35-7.45)
[2023-06-19 08:53] LABS: ABG HCO3 39 mmol/L (22-26); ABG PCO2 77 mmHg (35-45); ABG PO2 90 mmHg (80-105); ABG TCO2 41
[2023-06-19 11:51] LABS: ABG HCO3 40 mmol/L (22-26); ABG PCO2 66 mmHg (35-45); ABG PO2 79 mmHg (80-105); ABG TCO2 42
[2023-06-19] MEDS: CHLOROTHIAZIDE SODIUM 500 MG VIAL IV SCH ×2 (12:00→17:00)
[2023-06-20] VITALS (31 sets, daily range): BP systolic 87–136; BP diastolic 54–103; PULSE 49–110; RESP 10–30; TEMP 97.5–98.2; O2SAT 92–100
[2023-06-20] MEDS: ALBUTEROL/IPRATROPIUM 3 ML NEB NEB SCH ×6 (03:25→22:42)
[2023-06-20 06:50] LABS: BASOPHILS % 0.1 % (0.0-1.0); EOSINOPHILS % 0.1 % (0.0-6.0); HEMATOCRIT 32.9 % (38.2-49.6); HEMOGLOBIN 9.2 g/dL (14.0-18.0); LYMPHOCYTES # (AUTO) 1.2 (1.0-3.2); LYMPHOCYTES % 9.1 % (18.0-39.1); MEAN CORPUSCULAR HEMOGLOBIN 29.7 pg (28-32); MEAN CORPUSCULAR VOLUME 106.1 fL (81-99); MONOCYTES # (AUTO) 1.1 (0.2-0.8); MONOCYTES % 8.5 % (4.4-11.3); NEUTROPHILS # (AUTO) 10.8 (2.1-6.9); NEUTROPHILS % 81.7 % (38.7-80.0); PLATELET COUNT 156 x10e3/uL (140-360); RED CELL DISTRIBUTION WIDTH 13.6 % (11.7-14.4); WHITE BLOOD COUNT 13.16 x10e3/uL (4.8-10.8)
[2023-06-20 07:05] LABS: ALBUMIN 2.9 g/dL (3.5-5.0); ALBUMIN/GLOBULIN RATIO 0.8 (0.8-2.0); ANION GAP 11.4 mmol/L (8-16); BILIRUBIN,TOTAL 0.5 mg/dL (0.2-1.2); CALCIUM 9.3 mg/dL (8.4-10.2); CREATININE, SERUM 1.31 mg/dL (0.72-1.25); POTASSIUM 4.4 mmol/L (3.5-5.1); TOTAL PROTEIN 6.4 g/dL (6.5-8.1)
[2023-06-20] MEDS: SALMETEROL XINAF/FLUTICASONE 250/50 MCG INHALER INH SCH ×2 (07:09→18:40)
[2023-06-20] MEDS: APIXABAN 5 MG TABLET PO SCH ×2 (08:00→16:58)
[2023-06-20] MEDS ORDERED: DEXTROSE 5% 500ML 500 ML IV ONE (08:00)
[2023-06-20] MEDS: CHLOROTHIAZIDE SODIUM 500 MG VIAL IV SCH ×2 (08:00→16:58)
[2023-06-20] MEDS: EZETIMIBE 10 MG TAB PO SCH (08:00)
[2023-06-20] MEDS: METOPROLOL TARTRATE 25 MG TAB PO SCH ×2 (08:01→21:00)
[2023-06-20] MEDS: DOCUSATE SODIUM LIQD 100 MG/10 ML UDC NG SCH ×2 (08:01→16:58)
[2023-06-20] MEDS: FERROUS SULFATE 325 MG TAB PO SCH (08:01)
[2023-06-20] MEDS: GEMFIBROZIL 600 MG TAB PO SCH (08:02)
[2023-06-20 12:14] LABS: PLATELET MORPHOLOGY COMMENT NORMAL
[2023-06-20 12:15] LABS: PLATELET ESTIMATE ADEQUATE; RBC MORPHOLOGY COMMENT ABNORMAL
[2023-06-20] MEDS ORDERED: DEXTROSE 5% 1,000 ML IV ONE (21:45)
[2023-06-21] VITALS (45 sets, daily range): BP systolic 89–151; BP diastolic 53–109; PULSE 49–192; RESP 13–27; TEMP 98–98.4; O2SAT 87–100
[2023-06-21] MEDS: ALBUTEROL/IPRATROPIUM 3 ML NEB NEB SCH ×6 (03:24→23:45)
[2023-06-21 06:56] LABS: EOSINOPHILS # (AUTO) 0.2 (0.0-0.4); EOSINOPHILS % 2.3 % (0.0-6.0); HEMATOCRIT 31.2 % (38.2-49.6); HEMOGLOBIN 8.7 g/dL (14.0-18.0); LYMPHOCYTES # (AUTO) 0.8 (1.0-3.2); LYMPHOCYTES % 11.2 % (18.0-39.1); MEAN CORPUSCULAR HEMOGLOBIN 29.6 pg (28-32); MEAN CORPUSCULAR HGB CONC 27.9 g/dL (31-35); MEAN CORPUSCULAR VOLUME 106.1 fL (81-99); MONOCYTES # (AUTO) 0.6 (0.2-0.8); NEUTROPHILS # (AUTO) 5.7 (2.1-6.9); NEUTROPHILS % 77.9 % (38.7-80.0); PLATELET COUNT 155 x10e3/uL (140-360); RED BLOOD COUNT 2.94 x10e6/uL (4.3-5.7); RED CELL DISTRIBUTION WIDTH 13.3 % (11.7-14.4); WHITE BLOOD COUNT 7.25 x10e3/uL (4.8-10.8)
[2023-06-21 07:09] LABS: ALBUMIN 2.7 g/dL (3.5-5.0); ALBUMIN/GLOBULIN RATIO 0.8 (0.8-2.0); ANION GAP 7.9 mmol/L (8-16); BILIRUBIN,TOTAL 0.5 mg/dL (0.2-1.2); CALCIUM 8.7 mg/dL (8.4-10.2); CREATININE, SERUM 1.06 mg/dL (0.72-1.25); POTASSIUM 3.9 mmol/L (3.5-5.1); TOTAL PROTEIN 5.9 g/dL (6.5-8.1)
[2023-06-21] MEDS: SALMETEROL XINAF/FLUTICASONE 250/50 MCG INHALER INH SCH ×2 (08:28→19:17)
[2023-06-21] MEDS: ACETAZOLAMIDE 250 MG TAB PO SCH ×2 (09:29→17:37)
[2023-06-21] MEDS: METOPROLOL TARTRATE 25 MG TAB PO SCH ×2 (09:30→20:37)
[2023-06-21] MEDS: APIXABAN 5 MG TABLET PO SCH ×2 (09:31→17:37)
[2023-06-21] MEDS: FERROUS SULFATE 325 MG TAB PO SCH (09:31)
[2023-06-21] MEDS: EZETIMIBE 10 MG TAB PO SCH (09:31)
[2023-06-21] MEDS: DOCUSATE SODIUM LIQD 100 MG/10 ML UDC NG SCH ×2 (09:31→17:37)
[2023-06-21] MEDS: GEMFIBROZIL 600 MG TAB PO SCH (09:31)
[2023-06-21] MEDS: CHLOROTHIAZIDE SODIUM 500 MG VIAL IV SCH ×2 (09:46→17:37)
[2023-06-21 17:58] LABS: ANION GAP 9.2 mmol/L (8-16); CALCIUM 8.8 mg/dL (8.4-10.2); CREATININE, SERUM 1.11 mg/dL (0.72-1.25); POTASSIUM 4.2 mmol/L (3.5-5.1)
[2023-06-21] MEDS ORDERED: DEXTROSE 5% 1,000 ML IV ONE (18:45)
[2023-06-22] VITALS (31 sets, daily range): BP systolic 85–139; BP diastolic 52–95; PULSE 39–99; RESP 13–26; TEMP 97.6–98.2; O2SAT 81–100
[2023-06-22] MEDS: ALBUTEROL/IPRATROPIUM 3 ML NEB NEB SCH ×6 (03:58→23:40)
[2023-06-22 06:48] LABS: CALCIUM 8.6 mg/dL (8.4-10.2); CREATININE, SERUM 1.19 mg/dL (0.72-1.25)
[2023-06-22] MEDS: SALMETEROL XINAF/FLUTICASONE 250/50 MCG INHALER INH SCH ×2 (08:13→19:00)
[2023-06-22] MEDS: METOPROLOL TARTRATE 25 MG TAB PO SCH ×2 (09:00→21:06)
[2023-06-22] MEDS: DOCUSATE SODIUM LIQD 100 MG/10 ML UDC NG SCH ×2 (09:12→17:07)
[2023-06-22] MEDS: APIXABAN 5 MG TABLET PO SCH ×2 (09:12→17:07)
[2023-06-22] MEDS: FERROUS SULFATE 325 MG TAB PO SCH (09:12)
[2023-06-22] MEDS: GEMFIBROZIL 600 MG TAB PO SCH (09:12)
[2023-06-22] MEDS: CHLOROTHIAZIDE SODIUM 500 MG VIAL IV SCH ×2 (09:12→17:07)
[2023-06-22] MEDS: EZETIMIBE 10 MG TAB PO SCH (09:12)
[2023-06-22 10:43] LABS: ABG PCO2 85 mmHg (35-45); ABG PH 7.25 (7.35-7.45); ABG PO2 82 mmHg (80-105)
[2023-06-22 10:44] LABS: ABG HCO3 37 mmol/L (22-26); ABG TCO2 40
[2023-06-23] VITALS (31 sets, daily range): BP systolic 86–158; BP diastolic 48–133; PULSE 75–130; RESP 15–28; TEMP 97.9–98.4; O2SAT 96–100
[2023-06-23] MEDS: ALBUTEROL/IPRATROPIUM 3 ML NEB NEB SCH ×6 (03:00→23:12)
[2023-06-23] MEDS: SALMETEROL XINAF/FLUTICASONE 250/50 MCG INHALER INH SCH ×2 (07:28→19:28)
[2023-06-23] MEDS: DOCUSATE SODIUM LIQD 100 MG/10 ML UDC NG SCH ×2 (08:46→17:00)
[2023-06-23] MEDS: GEMFIBROZIL 600 MG TAB PO SCH (09:07)
[2023-06-23] MEDS: APIXABAN 5 MG TABLET PO SCH ×2 (09:07→17:32)
[2023-06-23] MEDS: EZETIMIBE 10 MG TAB PO SCH (09:08)
[2023-06-23] MEDS: METOPROLOL TARTRATE 25 MG TAB PO SCH ×2 (09:08→21:29)
[2023-06-23] MEDS: FERROUS SULFATE 325 MG TAB PO SCH (09:08)
[2023-06-23] MEDS: CHLOROTHIAZIDE SODIUM 500 MG VIAL IV SCH (09:14)
[2023-06-23] MEDS: ACETAMINOPHEN 325 MG TAB PO PRN (21:35)
[2023-06-24] VITALS (21 sets, daily range): BP systolic 84–146; BP diastolic 49–134; PULSE 67–103; RESP 15–34; TEMP 98.4; O2SAT 94–100
[2023-06-24] MEDS: ALBUTEROL/IPRATROPIUM 3 ML NEB NEB SCH ×7 (03:03→23:22)
[2023-06-24 05:32] LABS: BASOPHILS % 0.1 % (0.0-1.0); EOSINOPHILS # (AUTO) 0.2 (0.0-0.4); EOSINOPHILS % 1.8 % (0.0-6.0); HEMATOCRIT 27.7 % (38.2-49.6); HEMOGLOBIN 8.1 g/dL (14.0-18.0); LYMPHOCYTES # (AUTO) 0.9 (1.0-3.2); LYMPHOCYTES % 8.1 % (18.0-39.1); MEAN CORPUSCULAR HEMOGLOBIN 29.6 pg (28-32); MEAN CORPUSCULAR HGB CONC 29.2 g/dL (31-35); MEAN CORPUSCULAR VOLUME 101.1 fL (81-99); MONOCYTES # (AUTO) 1.1 (0.2-0.8); MONOCYTES % 10.1 % (4.4-11.3); NEUTROPHILS # (AUTO) 8.6 (2.1-6.9); NEUTROPHILS % 79.4 % (38.7-80.0); PLATELET COUNT 173 x10e3/uL (140-360); RED BLOOD COUNT 2.74 x10e6/uL (4.3-5.7); RED CELL DISTRIBUTION WIDTH 12.9 % (11.7-14.4); WHITE BLOOD COUNT 10.81 x10e3/uL (4.8-10.8)
[2023-06-24 06:17] LABS: ALBUMIN 2.8 g/dL (3.5-5.0); ALBUMIN/GLOBULIN RATIO 0.9 (0.8-2.0); ANION GAP 8.6 mmol/L (8-16); BILIRUBIN,TOTAL 0.7 mg/dL (0.2-1.2); CALCIUM 9.1 mg/dL (8.4-10.2); CREATININE, SERUM 1.06 mg/dL (0.72-1.25); POTASSIUM 3.6 mmol/L (3.5-5.1); TOTAL PROTEIN 5.9 g/dL (6.5-8.1)
[2023-06-24] MEDS: SALMETEROL XINAF/FLUTICASONE 250/50 MCG INHALER INH SCH ×2 (07:12→19:46)
[2023-06-24 07:23] LABS: MAGNESIUM 2.2 MG/DL (1.3-2.1); PHOSPHORUS 2.5 MG/DL (2.3-4.7)
[2023-06-24] MEDS: DOCUSATE SODIUM LIQD 100 MG/10 ML UDC NG SCH ×2 (08:15→17:00)
[2023-06-24] MEDS: EZETIMIBE 10 MG TAB PO SCH (08:15)
[2023-06-24] MEDS: FERROUS SULFATE 325 MG TAB PO SCH (08:16)
[2023-06-24] MEDS: APIXABAN 5 MG TABLET PO SCH ×2 (08:16→17:31)
[2023-06-24] MEDS: GEMFIBROZIL 600 MG TAB PO SCH (08:17)
[2023-06-24] MEDS: METOPROLOL TARTRATE 25 MG TAB PO SCH ×2 (08:21→20:23)
[2023-06-24 11:01] LABS: ABG HCO3 35 mmol/L (22-26); ABG PCO2 66 mmHg (35-45); ABG PH 7.34 (7.35-7.45); ABG PO2 105 mmHg (80-105); ABG TCO2 37
[2023-06-25] VITALS (29 sets, daily range): BP systolic 94–140; BP diastolic 54–110; PULSE 68–111; RESP 16–28; TEMP 98–98.4; O2SAT 88–100
[2023-06-25] MEDS: ACETAMINOPHEN 325 MG TAB PO PRN ×2 (00:12→20:18)
[2023-06-25] MEDS: ALBUTEROL/IPRATROPIUM 3 ML NEB NEB SCH ×6 (03:21→23:28)
[2023-06-25] MEDS: SALMETEROL XINAF/FLUTICASONE 250/50 MCG INHALER INH SCH ×2 (07:05→19:54)
[2023-06-25] MEDS: APIXABAN 5 MG TABLET PO SCH ×2 (08:59→16:49)
[2023-06-25] MEDS: DOCUSATE SODIUM LIQD 100 MG/10 ML UDC NG SCH ×2 (08:59→16:49)
[2023-06-25] MEDS: GEMFIBROZIL 600 MG TAB PO SCH (09:00)
[2023-06-25] MEDS: FERROUS SULFATE 325 MG TAB PO SCH (09:00)
[2023-06-25] MEDS: EZETIMIBE 10 MG TAB PO SCH (09:00)
[2023-06-25] MEDS: METOPROLOL TARTRATE 25 MG TAB PO SCH ×2 (09:00→20:19)
[2023-06-26] VITALS (22 sets, daily range): BP systolic 70–134; BP diastolic 47–89; PULSE 39–124; RESP 13–23; TEMP 98.4; O2SAT 89–100
[2023-06-26] MEDS: ALBUTEROL/IPRATROPIUM 3 ML NEB NEB SCH ×4 (03:24→15:47)
[2023-06-26] MEDS: SALMETEROL XINAF/FLUTICASONE 250/50 MCG INHALER INH SCH (07:23)
[2023-06-26 07:35] LABS: CALCIUM 9.6 mg/dL (8.4-10.2); CREATININE, SERUM 1.32 mg/dL (0.72-1.25)
[2023-06-26] MEDS: DOCUSATE SODIUM LIQD 100 MG/10 ML UDC NG SCH (09:00)
[2023-06-26] MEDS: FERROUS SULFATE 325 MG TAB PO SCH (09:15)
[2023-06-26] MEDS: APIXABAN 5 MG TABLET PO SCH (09:15)
[2023-06-26] MEDS: METOPROLOL TARTRATE 25 MG TAB PO SCH (09:15)
[2023-06-26] MEDS: GEMFIBROZIL 600 MG TAB PO SCH (09:15)
[2023-06-26] MEDS: EZETIMIBE 10 MG TAB PO SCH (09:15)
== END 2023-06-26 16:00 | DRG 291 ==
LOC: ER 15:50 → ERHOLD 19:18 → MED/SURG2 21:13 → ICU 06-14 09:23
PROVIDERS: ADMIT Internal Medicine; ATTEND Internal Medicine
PROC: 5A1945Z Respiratory Ventilation, 24-96 Consecutive Hours (ICD-10-PCS; principal; 2023-06-14)
PROC: 0BH17EZ Insertion of Endotracheal Airway into Trachea, Via Natural or Artificial Opening (ICD-10-PCS; 2023-06-14)
PROC: 02HV33Z Insertion of Infusion Device into Superior Vena Cava, Percutaneous Approach (ICD-10-PCS; 2023-06-14)
PROC: B548ZZA Ultrasonography of Superior Vena Cava, Guidance (ICD-10-PCS; 2023-06-14)
PROC: 4A033R1 Measurement of Arterial Saturation, Peripheral, Percutaneous Approach (ICD-10-PCS; 2023-06-14)
PROC: 03HY32Z Insertion of Monitoring Device into Upper Artery, Percutaneous Approach (ICD-10-PCS; 2023-06-15)
PROC: 3E043XZ Introduction of Vasopressor into Central Vein, Percutaneous Approach (ICD-10-PCS; 2023-06-16)
DX: I13.0 Hypertensive heart and chronic kidney disease with heart failure and stage 1 through stage 4 chronic kidney disease, or unspecified chronic kidney disease (principal); G93.41 Metabolic encephalopathy; J96.22 Acute and chronic respiratory failure with hypercapnia; I50.33 Acute on chronic diastolic (congestive) heart failure; J96.21 Acute and chronic respiratory failure with hypoxia; R57.0 Cardiogenic shock; N17.9 Acute kidney failure, unspecified; I48.20 Chronic atrial fibrillation, unspecified; E87.3 Alkalosis; J98.11 Atelectasis; E87.0 Hyperosmolality and hypernatremia; I27.20 Pulmonary hypertension, unspecified; E78.5 Hyperlipidemia, unspecified; K52.9 Noninfective gastroenteritis and colitis, unspecified; N18.9 Chronic kidney disease, unspecified; F10.20 Alcohol dependence, uncomplicated; G47.33 Obstructive sleep apnea (adult) (pediatric); H91.90 Unspecified hearing loss, unspecified ear; N52.9 Male erectile dysfunction, unspecified; F32.A Depression, unspecified; E55.9 Vitamin D deficiency, unspecified; J30.9 Allergic rhinitis, unspecified; S61.212A Laceration without foreign body of right middle finger without damage to nail, initial encounter; X58.XXXA Exposure to other specified factors, initial encounter; B85.2 Pediculosis, unspecified; M19.90 Unspecified osteoarthritis, unspecified site; N40.0 Benign prostatic hyperplasia without lower urinary tract symptoms; D50.9 Iron deficiency anemia, unspecified; Z96.643 Presence of artificial hip joint, bilateral; Z96.611 Presence of right artificial shoulder joint; Z96.653 Presence of artificial knee joint, bilateral; Z99.81 Dependence on supplemental oxygen; Z79.01 Long term (current) use of anticoagulants; Z85.820 Personal history of malignant melanoma of skin; Z87.891 Personal history of nicotine dependence; Z68.38 Body mass index [BMI] 38.0-38.9, adult; Y92.89 Other specified places as the place of occurrence of the external cause; Z20.822 Contact with and (suspected) exposure to COVID-19
CPT/HCPCS: 36415; 36600; 70450; 71045; 74018; 74230; 76770; 80048; 80053; 80061; 80076; 81001; 82550; 82607; 82728; 82746; 82805; 83036; 83540; 83735; 83880; 84100; 84132; 84439; 84443; 84466; 84484; 85025; 85045; 85610; 85730; 87086; 87400; 93005; 93306; 94002; 94003; 94640; 94660; 94668; 94799; 99252; 99284; J0696; J1940; J2250; J2920; J2930; J7030; J7050; J7060; J7070; U0002